=== PATIENT | female | born 1990 | race Caucasian/White ===

== ENCOUNTER 2021-02-08 06:42 | Emergency (ER) | payer SELFPAY ==
[~2021-02-08] VITALS: Ht 167.6 cm; Wt 93.0 kg
[2021-02-08] MEDS ORDERED: ALBUTEROL (0.083%) 2.5MG/3ML NEB HHN STA (06:58)
[2021-02-08] MEDS ORDERED: IPRATROPIUM BROMIDE (0.02%) 0.5MG/2.5ML NEB HHN STA (06:58)
[2021-02-08] MEDS ORDERED: METHYLPREDNISOLONE SOD SUCC 125 MG/2 ML VIAL IV STA (06:58)
[2021-02-08 09:00] VITALS: BP 129/84
[2021-02-08] MEDS ORDERED: P50 PO (09:05)
[2021-02-08] MEDS ORDERED: ALBU6.7H9 INH (09:05)
== END 2021-02-08 10:37 | disposition home or self-care (01) ==
LOC: ER 06:42
DX: J45.901 Unspecified asthma with (acute) exacerbation (principal)
CPT/HCPCS: 71045; 93005; 94644; 96374; 99285; J2930; Z7610